=== PATIENT | male | born 2000 | race Native Hawaiian/Other Pacific Islander ===

== ENCOUNTER 2022-01-27 12:42 | Emergency (ER) | payer OTHER ==
[~2022-01-27] VITALS: Ht 177.8 cm; Wt 83.2 kg
[2022-01-27] MEDS ORDERED: NEOSPORIN OINT 0.9 GM PKT TOP ONE (13:05)
[2022-01-27] MEDS ORDERED: LIDOCAINE W/EPINEPHRINE 1% 20ML VIAL SC ONE (13:05)
[2022-01-27] MEDS ORDERED: BACI28.43 TOP (13:50)
[2022-01-27 13:56] VITALS: BP 155/73
== END 2022-01-27 14:05 | disposition home or self-care (01) ==
LOC: M ED 12:42
DX: S81.811A Laceration without foreign body, right lower leg, initial encounter (principal); W26.0XXA Contact with knife, initial encounter; Y92.009 Unspecified place in unspecified non-institutional (private) residence as the place of occurrence of the external cause; Z91.013 Allergy to seafood